=== PATIENT | male | born 1970 | race Caucasian/White ===

== ENCOUNTER 2018-01-28 18:24 | Emergency (ER) | payer OTHER, BC ==
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
[2018-01-28 18:55] VITALS: BP 127/82; PULSE 75; TEMP 98.2; BMI 29.9
== END 2018-01-28 19:07 | disposition home or self-care (01) ==
LOC: FER 18:24
DX: S93.402A Sprain of unspecified ligament of left ankle, initial encounter (principal); S80.02XA Contusion of left knee, initial encounter; V43.52XA Car driver injured in collision with other type car in traffic accident, initial encounter; Y93.89 Activity, other specified; Y92.410 Unspecified street and highway as the place of occurrence of the external cause
CPT/HCPCS: 99281-25